=== PATIENT | male | born 1950 | race Caucasian/White ===

== ENCOUNTER → 2018-03-28 | Outpatient (CLI) | payer OTHER ==
[~2018-03-28] MED LIST: CRESTOR40 MG PO; FISH OIL500 MG PO; FLOVENT 11120 INHALA IH; HYDROCHLOROTHIA25 MG PO; LEVAQUIN750 MG PO; METOPROLOL SUCC25 MG PO; NEXIUM 24HR20 MG PO; NITROSTAT0.4 MG SL; PLAVIX75 MG PO; PROVENTIL HFA6.7 GM IH; RAMIPRIL5 MG PO; ST. JOSEPH ASPI81 MG PO; TYLENOL EXTRA500 MG PO; XARELTO20 MG PO; ZANTAC75 M1 PO
== END | disposition home or self-care (01) ==
LOC: RAD 13:10
DX: L02.11 Cutaneous abscess of neck (principal)
CPT/HCPCS: 70491